=== PATIENT | female | born 1935 | race Caucasian/White ===

== ENCOUNTER → 2017-02-26 | Outpatient (CLI) | payer OTHER ==
[~2017-02-26] MED LIST: CALCIUM500 MG PO; NAPROXEN250 MG PO; NON-ASPIRIN EX500 M2 PO; TYLENOL PM EX-S1 TA4
--- NOTE | ~2017-02-26 | MY29 ---
[facility] A Service of [facility] & [facility] RADIOLOGY TEXT RESULTS PATIENT: CANDICE RYDER LOCATION: [facility] : 31 UNIT #: [id number] AGE: [address]: Munira Stapleton APRN SEX: F ORDER DR: [id number] [facility] [address] [place], [place] [address] [id number] O MR#: [id number] Acc #: [id number] NAME: CANDICE RYDER : 1935 SEX: F STUDY DATE/TIME: 02/26/2017 14:36 UNIT: [facility] ROOM: STUDY DESCRIPTION: MY DEBBIE SCREENING W/ CAD BILAT Attending Physician: Munira Stapleton A.P.R.N. Referring Physician: Munira Stapleton A.P.R.N. Ordering Physician: Munira Stapleton A.P.R.N. Primary Care Physician: Munira Stapleton A.P.R.N. MEDICAL IMAGING REPORT This report is preliminary unless electronic signature is present EXAM Digital screening mammogram 02/26/2017 HISTORY 81-year-old woman, positive family history. Annual screening. COMPARISON STUDIES Comparison mammograms date to 09/11/2006 with most recent 02/24/2016. FINDINGS Digital imaging of each breast was completed utilizing screening protocol. Review includes FDA-approved CAD device. Breast parenchyma is heterogeneously dense with small nodular parenchymal pattern and subareolar duct prominence. Occasional benign calcification in each breast. I see no interval occurring breast mass. There are no suspicious microcalcifications and no architectural deformity. IMPRESSION Benign mammogram. Annual screening recommended. BIRADS: 2 Benign Finding. Patients over the age of 40 are entered into a reminder system with target due date for the next mammogram. A result letter will also be sent to the patient. Dictated by... Efra Raygoza M.D. THIS IS AN ELECTRONICALLY VERIFIED REPORT Efra Raygoza M.D. at 03/01/2017 8:08 AM JBB/ranjith STS. [facility] A Service of [facility] RADIOLOGY TEXT RESULTS PATIENT: CAND[facility]YDER [id number] : [birth year] UNIT #: [id number] AGE: [address]: Munira Stapleton APRN SEX: F ORDER DR: TD: 02/26/2017 20:03 JOB #: [id number] MEDICAL IMAGING REPORT Page 1 of 1 COPY
== END | disposition home or self-care (01) ==
LOC: CWCC 14:11
DX: Z12.31 Encounter for screening mammogram for malignant neoplasm of breast (principal); Z80.3 Family history of malignant neoplasm of breast
CPT/HCPCS: G0202